=== PATIENT | female | born 1950 ===

== ENCOUNTER 2023-07-19 08:15 | Outpatient (CLI) | payer OTHER | END 2023-07-19 08:25 | disposition home or self-care (01) | LOC: TOM 08:15 | PROVIDERS: ATTEND Student in an Organized Health Care Education/Training Program | DX: Z12.11 Encounter for screening for malignant neoplasm of colon (principal) ==

== ENCOUNTER 2023-09-20 09:45 | Inpatient (IN) | payer OTHER ==
[~2023-09-20] VITALS: Ht 167.6 cm; Wt 65.3 kg
[2023-09-20] MEDS ORDERED: HYDROCHLOROTHIA25 MG PO (11:26)
[2023-09-20] MEDS ORDERED: ZYLOPRIM100 M1 PO (11:26)
[2023-09-20] MEDS ORDERED: TENORMIN25 MG PO (11:26)
[2023-09-20] MEDS ORDERED: ATORVASTATIN CA20 MG PO (11:27)
[2023-09-26] MEDS ORDERED: DAILY VALUE1 EACH (08:54)
[2023-09-26 14:29] LABS: HEMATOCRIT 41.5 % (36.0-45.00); MEAN CELL VOLUME 89.7 fL (80.00-100.00); MEAN CORPUSCULAR HEMOGLOBIN 30.2 pg (27.00-32.0); MEAN CORPUSCULAR HGB CONC 33.7 g/dl (32.0-36.0); PLATELET COUNT 253 K/uL (150-450); RED BLOOD COUNT 4.63 M/uL (4.00-6.00); RED CELL DISTRIBUTION WIDTH 14.1 % (11.5-14.5)
[2023-09-26 15:19] LABS: ALBUMIN 3.2 gm/dL (3.4-5.0); CALCIUM 8.5 mg/dL (8.5-10.1); CREATININE SERUM 0.59 mg/dL (0.55-1.02); GFR 99.91; PHOSPHOROUS 3.4 mg/dL (2.5-4.9); POTASSIUM 3.5 mEq/L (3.5-5.1)
[2023-09-27 05:34] LABS: HEMATOCRIT 36.3 % (36.0-45.00); HEMOGLOBIN 12.4 g/dL (12.0-15.00); MEAN CELL VOLUME 89.4 fL (80.00-100.00); MEAN CORPUSCULAR HEMOGLOBIN 30.6 pg (27.00-32.0); MEAN CORPUSCULAR HGB CONC 34.2 g/dl (32.0-36.0); PLATELET COUNT 208 K/uL (150-450); RED BLOOD COUNT 4.06 M/uL (4.00-6.00); RED CELL DISTRIBUTION WIDTH 13.8 % (11.5-14.5)
[2023-09-27 06:43] LABS: ALBUMIN 2.8 gm/dL (3.4-5.0); CREATININE SERUM 0.49 mg/dL (0.55-1.02); GFR 123.79; MAGNESIUM 1.9 mg/dL (1.8-2.4); PHOSPHOROUS 3.1 mg/dL (2.5-4.9)
[2023-09-27 08:52] LABS: POTASSIUM 2.93 mEq/L (3.5-5.1)
[2023-09-28 08:28] LABS: HEMOGLOBIN 12.1 g/dL (12.0-15.00); MEAN CELL VOLUME 89.2 fL (80.00-100.00); MEAN CORPUSCULAR HEMOGLOBIN 30.8 pg (27.00-32.0); MEAN CORPUSCULAR HGB CONC 34.5 g/dl (32.0-36.0); PLATELET COUNT 195 K/uL (150-450); RED BLOOD COUNT 3.92 M/uL (4.00-6.00); RED CELL DISTRIBUTION WIDTH 14.2 % (11.5-14.5)
[2023-09-28 08:41] LABS: CALCIUM 8.2 mg/dL (8.5-10.1); CREATININE SERUM 0.56 mg/dL (0.55-1.02); GFR 106.11; PHOSPHOROUS 2.7 mg/dL (2.5-4.9); POTASSIUM 3.24 mEq/L (3.5-5.1)
[2023-09-29] MEDS ORDERED: ACETAMINOPHEN500 M2 PO (14:07)
[2023-09-29] MEDS ORDERED: NEURONTIN300 MG PO (14:07)
== END 2023-09-29 14:18 | disposition home or self-care (01) | DRG 330 ==
LOC: O/R 09-26 06:00 → SURH 09-26 09:45 → SURG 09-26 12:31
PROVIDERS: Internal Medicine Geriatric Medicine; ADMIT Surgery; ATTEND Surgery
PROC: 0DBP4ZZ Excision of Rectum, Percutaneous Endoscopic Approach (ICD-10-PCS; 2023-09-26)
PROC: 0DBM4ZZ Excision of Descending Colon, Percutaneous Endoscopic Approach (ICD-10-PCS; 2023-09-26)
PROC: 07BD4ZZ Excision of Aortic Lymphatic, Percutaneous Endoscopic Approach (ICD-10-PCS; 2023-09-26)
PROC: 0DJD8ZZ Inspection of Lower Intestinal Tract, Via Natural or Artificial Opening Endoscopic (ICD-10-PCS; 2023-09-26)
PROC: 3E0F7SF Introduction of Other Gas into Respiratory Tract, Via Natural or Artificial Opening (ICD-10-PCS; 2023-09-26)
PROC: 0DTN4ZZ Resection of Sigmoid Colon, Percutaneous Endoscopic Approach (ICD-10-PCS; principal; 2023-09-26 10:00)
DX: D12.5 Benign neoplasm of sigmoid colon (principal); K51.40 Inflammatory polyps of colon without complications; K56.699 Other intestinal obstruction unspecified as to partial versus complete obstruction; K57.20 Diverticulitis of large intestine with perforation and abscess without bleeding; R59.0 Localized enlarged lymph nodes; I11.9 Hypertensive heart disease without heart failure